=== PATIENT | female | born 1950 | race Asian ===

== ENCOUNTER → 2016-11-21 | Outpatient (CLI) | payer OTHER ==
[2015-09-10 09:15] VITALS: BP 140/81
[~2016-11-21] MED LIST: IBAN150T PO; LATA2.5D3 OP; LEVO112T4 PO; LOSA50TA6 PO; OMEG1CAP38 PO
[2016-11-21 07:12] LABS: BASO # 0.1 x10^3/uL (0.0-0.2); BASO % 1 % (0-3); EOS % 2 % (0-3); HEMATOCRIT 40.4 % (36.0-47.0); HEMOGLOBIN 13.1 g/dL (12.0-15.5); LYMPH % 22 % (24-48); MEAN CORPUSCULAR HEMOGLOBIN 27 pg (25-35); MEAN CORPUSCULAR HGB CONC 32 g/dL (31-37); MEAN CORPUSCULAR VOLUME 85 fL (79-100); MONO % 8 % (0-9); NEUT % 67 % (31-73); PLATELET COUNT 177 x10^3/uL (140-400); RED BLOOD COUNT 4.78 x10^6/uL (3.50-5.40); RED CELL DISTRIBUTION WIDTH 14.6 % (11.5-14.5)
[2016-11-21 07:32] LABS: ALBUMIN 3.5 g/dL (3.4-5.0); ALBUMIN/GLOBULIN RATIO 0.9 (1.0-1.7); CALCIUM 9.2 mg/dL (8.5-10.1); CREATININE 0.8 mg/dL (0.6-1.0); GFR 72.2; POTASSIUM 4.3 mmol/L (3.5-5.1); TOTAL BILIRUBIN 0.4 mg/dL (0.2-1.0); TOTAL PROTEIN 7.6 g/dL (6.4-8.2)
[2016-11-21 07:34] LABS: CHOLESTEROL/HDL RATIO 2.5
[2016-11-21 07:41] LABS: FREE T4 1.16 ng/dL (0.76-1.46)
[2016-11-21 10:34] LABS: ANISOCYTOSIS PRESENT; PLT ESTIMATE ADEQUATE (ADEQUATE)
[2016-11-22 05:19] LABS: ESTRADIOL LEVEL <5.0 pg/mL (.)
[2016-11-22 14:26] LABS: VITAMIN D25(OH)TOTAL 20.7 ng/mL (30.0-100.0)
== END | disposition home or self-care (01) ==
LOC: LAB 06:37
PROVIDERS: ATTEND Family Medicine
DX: E03.9 Hypothyroidism, unspecified (principal)
CPT/HCPCS: 36415; 80053; 80061; 82306; 82670; 84439; 84443; 85007; 85027

== ENCOUNTER → 2017-01-02 | Outpatient (CLI) | payer OTHER ==
[2015-09-10 09:15] VITALS: BP 140/81
--- NOTE | 2017-01-02 15:26 | KCIC ---
PROCEDURE Bilateral digital screening mammogram. HISTORY 66-year-old female presents for screening mammography. TECHNIQUE Full field digital craniocaudal and mediolateral oblique views of both breasts are obtained. Computer aided detection is applied. COMPARISON 11/20/2014 FINDINGS Breast parenchymal composition: Level A - Mostly fat. There is no new suspicious mass, calcification or architectural distortion. There are benign calcifications bilaterally, the majority of which are vascular in etiology. IMPRESSION BI-RADS Category 2: Benign findings. Annual mammography is recommended. Mammography is not 100% sensitive in detecting breast cancer. Therefore, a self breast exam and a clinical breast exam are very important. A negative mammogram does not negate a clinically suspicious finding and should not result in a delay in biopsying a clinically suspicious abnormality. This patient's information has been entered into a reminder system for the patient to be notified with the results of this examination and a target date for her next mammograms. Electronically signed by: Thu Nuñez (Jan 02, 2017 15:24:55)
--- NOTE | 2017-01-02 15:44 | KCIC ---
DEXA study Indication: Osteoporosis screening Reason For Study Reason: OSTEOPENIA OF MULTIPLE SITES, LOSS OF HEIGHT, POST MENOPAUSAL / Spl. Instructions: / History: Findings: score:-0.3 According to the world health organization (WHO): Normal: T score at or above -1 Osteopenia: T score between -1 and -2.5 Osteoporosis: T score at or below -2.5 Impression: Findings are consistent with osteopenia. Electronically signed by: Sudheer Murry (Jan 02, 2017 15:43:09)
== END | disposition home or self-care (01) ==
LOC: KCIC DEXA 13:19
PROVIDERS: ATTEND Internal Medicine
DX: Z12.31 Encounter for screening mammogram for malignant neoplasm of breast (principal); Z13.820 Encounter for screening for osteoporosis; M85.89 Other specified disorders of bone density and structure, multiple sites; R29.890 Loss of height; Z78.0 Asymptomatic menopausal state
CPT/HCPCS: 77080; G0202; 77067

== ENCOUNTER 2017-01-09 08:32 | Emergency (ER) | payer OTHER ==
[~2017-01-09] VITALS: Ht 165.1 cm; Wt 92.5 kg
[2017-01-09 08:32] VITALS: BP 146/77
--- NOTE | 2017-01-09 09:13 | PHYS DOC ---
Past Medical History Past Medical History: Hypertension, Hypothyroid Past Surgical History: Tubal ligation Alcohol Use: None Drug Use: None Adult General Chief Complaint Chief Complaint: FLU SYMPTOM HPI HPI Patient is a 66 year old female presents emergency department with complaint of generalized body aches and discomfort as well as congestion and weakness. Patient states she didn't get the flu shot. 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 She has been taking pdaw-fnz-iqvivsq medications for nasal congestion without relief. She states she's been using department as well. She states she is unable to sleep well at night. Review of Systems Review of Systems Constitutional: Denies fever or chills [] Eyes: Denies change in visual acuity, redness, or eye pain [] HENT: nasal congestion denies sore throat [] Respiratory: cough denies shortness of breath [] Cardiovascular: No additional information not addressed in HPI [] GI: Denies abdominal pain, nausea, vomiting, bloody stools or diarrhea [] : Denies dysuria or hematuria [] Musculoskeletal: Denies back pain or joint pain [] Integument: Denies rash or skin lesions [] Neurologic: Denies headache, focal weakness or sensory changes [] Allergies Allergies Allergies Coded Allergies Type Severity Reaction Last Updated Verified No Known Drug Allergies 09/10/15 No Physical Exam Physical Exam Constitutional: Well developed, well nourished, no acute distress, non-toxic appearance. [] HENT: Normocephalic, atraumatic, bilateral external ears normal, oropharynx moist, no oral exudates, nose normal. Bilateral tympanic membranes appear to be normal. Throat with no erythematous. Eyes: PERRLA, EOMI, conjunctiva normal, no discharge. [] Neck: Normal range of motion, no tenderness, supple, no stridor. [] Cardiovascular:Heart rate regular rhythm, no murmur [] Lungs & Thorax: Bilateral breath sounds clear to auscultation [] Skin: Warm, dry, no erythema, no rash. [] Back: No tenderness Extremities: No tenderness, no cyanosis, no clubbing, ROM intact, no edema. [] Neurologic: Alert and oriented X 3, normal motor function, normal sensory function, no focal deficits noted. [] Psychologic: Affect normal, judgement normal, mood normal. [] Current Patient Data Vital Signs Vital Signs Date Time Temp Pulse Resp B/P Pulse Ox O2 Delivery O2 Flow Rate FiO2 01/09/17 08:32 97.9 94 18 96 Room Air 97.9 EKG EKG [] Radiology/Procedures Radiology/Procedures [] Course & Med Decision Making Course & Med Decision Making Pertinent Labs and Imaging studies reviewed. (See chart for details) Patient was positive for influenza A. She'll be placed on Tamiflu as she is right at the cutoff for the timeframe for Tamiflu. Patient will be discharged home in stable condition with recommendations for Tylenol and ibuprofen for fever chills generalized body aches and discomfort. Patient agrees with discharge instructions treatment regimens and follow-up with recommendations. Also recommended plenty of fluids such as water and Gatorade and propel. Patient was provided with signs and symptoms to return back to the emergency department. [] Dragon Disclaimer Dragon Disclaimer This electronic medical record was generated, in whole or in part, using a voice recognition dictation system. Departure Departure Impression: Primary Impression: Influenza A Disposition: HOME, SELF-CARE Condition: STABLE Referrals: MCKENNA CHENG MD (PCP) Patient Instructions: Influenza, Adult, Qvge-io-Oqqy Additional Instructions: Home to rest Medication as prescribed Tylenol or Ibuprofen for fever, chills and generalized body aches Drink plenty of fluids such as water, gatorade or propel Followup with your primary care provider in 3-5 days Return to emergency department as needed for signs and symptoms that become worse. Scripts Oseltamivir Phosphate (Tamiflu)75 Mg Capsule1 Cap PO BID #10 CAP Prov:DARRIAN VALERIO NP 01/09/17 DARRIAN VALERIO NP Jan 09, 2017 09:13
[2017-01-09 09:24] LABS: OBC FLU VALID
[2017-01-09] MEDS ORDERED: OSEL75CA PO (09:28)
== END 2017-01-09 09:30 | disposition home or self-care (01) ==
LOC: ER 08:32
DX: J09.X2 Influenza due to identified novel influenza A virus with other respiratory manifestations (principal); I10 Essential (primary) hypertension; E03.9 Hypothyroidism, unspecified; Z98.51 Tubal ligation status
CPT/HCPCS: 87804; 99284

== ENCOUNTER → 2017-02-09 | Outpatient (CLI) | payer OTHER ==
[~2017-02-09] MED LIST changes: +OSEL75CA PO; +REGADENOSON 0.4 MG/5 ML DISP.SYRIN. IV ONE
--- NOTE | 2017-02-09 12:24 | RAD ---
APPROVED REPORT Test Type: Pharmacological Stress Nurse/Tech: candido daugherty Test Indications: chest tightness Cardiac History: HTN, SEE EHR Medications: SEE EHR Medical History: NONE STATED, SEE EHR Resting ECG: SR Resting Heart Rate: 65 bpm Resting Blood Pressure: 147/85mmHg Pretest Chest Pain: No chest pain Nurse/Tech Notes LUNG SOUNDS CLEAR, S1S2 WNL. Consent: The procedure was explained to the patient in lay terms. Informed consent was witnessed. Angus eout was entered into [employer]. History and Stress Test performed by RICARDO Lo Pharm. Details Pharmacologic stress testing was performed using 0.4mg per 5ml of regadenoson given intravenously ove r 7-10 seconds. Stress Symptoms NONE STATED POST EXERCISE Reason for Termination: Infusion complete Max HR: 100 bpm Max Blood Pressure: 147/85mmHg Chest Pain: No. Arrhythmia: No. ST Change: No. . INTERPRETATION Stress EKG Conclusion: Baseline EKG showed sinus rhythm. No ischemic changes at peak stress. No arr hythmias. Imaging Protocol IMAGE PROTOCOL: Rest Tc-99m/stress Tc-99m 1 day Rest: Stress: Viability: Radiopharm.Tc99m EieyofjszCu42g Sestamibi Ksho54kCh 33.7mCi Duration 15min. 10min. Img Date 02/09/2017 02/09/2017 Inj-Img Wyji42cjr. 60min. Rest Admin Site:IV - Right WristAdministrator:RT Roly (R)(N) Stress Admin Site: IV - Right WristAdministrator: RICARDO Lo STRESS DATA End Diast. Vol.44.0mlAv. Heart Rate86.0bpm End Syst. Vol.4.0mlCO Index BSA0.0L/min Myocardial Mass90.0gEject. Dcnpzupe13.0% Stress Rates Pk. Fill Rate5.48EDV/secLVtime Pk. Fill 195.75msec Pk. Empty Rate6.85ESV/secLVtime Pk. Xhyki289.89msec 11/14 Pk. Fill0.79EDV/sec Stress Scores Regional WT0.00Summed WT0.00 Regional WM0.00Summed WM1.00 Study quality was good. Left Ventricular size was Normal at Rest and Stress. Lung uptake was Normal. Left Ventricular ejection fraction is >80%. The rest and stress images show normal perfusion, normal contraction and thickening. LV Perf. Quant 17 Seg. SSS1.00 17 Seg. SRS0.00 17 Seg. SDS1.00 Stress Defect Extent (% LAD)0.00Rest Defect Extent (% LAD)0.00Rev. Defect Extent (% LAD)0.00 Stress Defect Extent (% LCX) 7.50Rest Defect Extent (% LCX)0.00Rev. Defect Extent (% LCX)0.00 Stress Defect Extent (% RCA)0.00Rest Defect Extent (% RCA)0.00Rev. Defect Extent (% RCA)0.00 Stress Defect Extent (% KISHOR)1.30Rest Defect Extent (% KISHOR)0.00Rev. Defect Extent (% KISHOR)0.00 Conclusion 1. Regadenoson cardioisotope stress test did not show any evidence of ischemia or infarct. 2. Normal left ventricular systolic function with ejection fraction calculated at >80%. 3. Low risk for cardiac events.
== END | disposition home or self-care (01) ==
LOC: NM 07:48
PROVIDERS: ATTEND Internal Medicine Cardiovascular Disease
DX: R07.2 Precordial pain (principal)
CPT/HCPCS: 78452; 93017; 96374; 96375; 96376; A9500; J2785

== ENCOUNTER → 2017-02-19 | Outpatient (CLI) | payer OTHER ==
[~2017-02-19] MED LIST changes: -REGADENOSON 0.4 MG/5 ML DISP.SYRIN. IV ONE
--- NOTE | 2017-02-19 15:19 | CARD ---
APPROVED REPORT EXAM: Two-dimensional and M-mode echocardiogram with Doppler and color Doppler. Other Information Quality : GoodHR: 71bpm Rhythm : NSR INDICATION Precordial pain RISK FACTORS Hypertension Family History 2D DIMENSIONS RVDd1.7 (2.9-3.5cm)Left Atrium(2D)3.3 (1.6-4.0cm) IVSd0.9 (0.7-1.1cm)Aortic Root(2D)2.9 (2.0-3.7cm) LVDd5.1 (3.9-5.9cm)LVOT Diameter2.3 (1.8-2.4cm) PWd0.7 (0.7-1.1cm)LVDs3.1 (2.5-4.0cm) FS (%) 38.6 %SV83.9 ml LVEF(%)68.6 (>50%) Aortic Valve AoV Peak Erlin.151.7cm/sAoV VTI31.5cm AO Peak GR.9.2mmHgLVOT Peak Erlin.110.1cm/s AO Mean GR.5mmHgAVA (VMAX)2.95cm2 Mitral Valve MV E Yxqqjhus40.0cm/sMV E Peak Gr.3mmHg MV DECEL [id number] A Ltxjaefk61.6cm/s MV E Mean Gr.1mmHgE/A Ratio0.8 MV A Bcmfwnge937ew Pulmonary Valve PV Peak Bxxewnxd66.1cm/s Pulmonary Vein S1 Mgcvwqql89.0cm/sD2 Kejycpot19.6cm/s PVa grbzurph83iypu LEFT VENTRICLE The left ventricle is normal size. There is normal left ventricular wall thickness. The left ventricu lar systolic function is normal and the ejection fraction is within normal range. The Ejection Fracti on is 60-65%. There is normal LV segmental wall motion. Transmitral Doppler flow pattern is Grade I-a bnormal relaxation pattern. RIGHT VENTRICLE The right ventricle is normal size. There is normal right ventricular wall thickness. The right ventr icular systolic function is normal. ATRIA The left atrium size is normal. The right atrium size is normal. The interatrial septum is intact wit h no evidence for an atrial septal defect or patent foramen ovale as noted on 2-D or Doppler imaging. AORTIC VALVE The aortic valve is mildly sclerotic. The aortic valve is trileaflet. Doppler and Color Flow revealed no significant aortic regurgitation. There is no significant aortic valvular stenosis. MITRAL VALVE Mitral annular calcification is mild. The mitral valve leaflets are thickened. There is no evidence o f mitral valve prolapse. There is no mitral valve stenosis. Doppler and Color Flow revealed trace korey ral regurgitation. TRICUSPID VALVE The tricuspid valve is normal in structure and function. Doppler and Color Flow revealed trace tricus pid regurgitation. PULMONIC VALVE The pulmonary valve is normal in structure and function. Doppler and Color Flow revealed trace pulmon ic valvular regurgitation. There is no pulmonic valvular stenosis. GREAT VESSELS The aortic root is normal in size. The ascending aorta is normal in size. The pulmonary artery is nor mal. The IVC is normal in size and collapses >50% with inspiration. PERICARDIAL EFFUSION There is no evidence of significant pericardial effusion. Critical Notification Critical Value: No <Conclusion> The left ventricle is normal size. The left ventricular systolic function is normal and the ejection fraction is within normal range. The Ejection Fraction is 60-65%. There is normal left ventricular wall thickness. There is no significant aortic valvular stenosis. Doppler and Color Flow revealed no significant aortic regurgitation. Doppler and Color Flow revealed trace mitral regurgitation. Doppler and Color Flow revealed trace tricuspid regurgitation. There is no evidence of significant pericardial effusion.
== END | disposition home or self-care (01) ==
LOC: ECHO 11:51
PROVIDERS: ATTEND Internal Medicine Cardiovascular Disease
DX: R07.2 Precordial pain (principal); I08.1 Rheumatic disorders of both mitral and tricuspid valves
CPT/HCPCS: 93306

== ENCOUNTER → 2017-08-10 | Outpatient (CLI) | payer OTHER ==
[2017-08-10 07:29] LABS: BASO # 0.1 x10^3/uL (0.0-0.2); BASO % 1 % (0-3); EOS % 1 % (0-3); HEMATOCRIT 41.6 % (36.0-47.0); HEMOGLOBIN 13.6 g/dL (12.0-15.5); LYMPH # 2.7 x10^3/uL (1.0-4.8); LYMPH % 28 % (24-48); MEAN CORPUSCULAR HEMOGLOBIN 28 pg (25-35); MEAN CORPUSCULAR HGB CONC 33 g/dL (31-37); MEAN CORPUSCULAR VOLUME 85 fL (79-100); MONO % 9 % (0-9); NEUT % 61 % (31-73); PLATELET COUNT 187 x10^3/uL (140-400); RED BLOOD COUNT 4.89 x10^6/uL (3.50-5.40); RED CELL DISTRIBUTION WIDTH 14.1 % (11.5-14.5); WHITE BLOOD COUNT 9.8 x10^3/uL (4.0-11.0)
[2017-08-10 07:58] LABS: ALBUMIN 3.5 g/dL (3.4-5.0); ALBUMIN/GLOBULIN RATIO 0.8 (1.0-1.7); CALCIUM 9.4 mg/dL (8.5-10.1); CREATININE 0.8 mg/dL (0.6-1.0); POTASSIUM 4.2 mmol/L (3.5-5.1); TOTAL BILIRUBIN 0.3 mg/dL (0.2-1.0); TOTAL PROTEIN 7.9 g/dL (6.4-8.2); URIC ACID 5.1 mg/dL (2.6-6.0)
[2017-08-10 08:02] LABS: CHOLESTEROL/HDL RATIO 2.7
[2017-08-10 08:12] LABS: FREE T4 1.19 ng/dL (0.76-1.46)
[2017-08-10 16:20] LABS: RHEUMATOID FACTOR <10.0 IU/mL (0.0-13.9)
== END | disposition home or self-care (01) ==
LOC: LAB 07:10
PROVIDERS: ATTEND Internal Medicine
DX: E03.9 Hypothyroidism, unspecified (principal)
CPT/HCPCS: 36415; 80053; 80061; 82306; 84439; 84443; 84550; 85025; 85651; 86431

== ENCOUNTER → 2018-05-01 | Outpatient (CLI) | payer OTHER ==
[2018-05-01 07:57] LABS: ADD MAN DIFF? NO; BASO # 0.1 x10^3/uL (0.0-0.2); BASO % 1 % (0-3); EOS # 0.2 x10^3/uL (0.0-0.7); EOS % 3 % (0-3); HEMATOCRIT 39.8 % (36.0-47.0); HEMOGLOBIN 13.2 g/dL (12.0-15.5); LYMPH # 1.5 x10^3/uL (1.0-4.8); LYMPH % 19 % (24-48); MEAN CORPUSCULAR HEMOGLOBIN 28 pg (25-35); MEAN CORPUSCULAR HGB CONC 33 g/dL (31-37); MEAN CORPUSCULAR VOLUME 84 fL (79-100); MONO # 0.8 x10^3/uL (0.0-1.1); MONO % 10 % (0-9); NEUT # 5.4 x10^3uL (1.8-7.7); NEUT % 68 % (31-73); PLATELET COUNT 171 x10^3/uL (140-400); RED BLOOD COUNT 4.74 x10^6/uL (3.50-5.40); RED CELL DISTRIBUTION WIDTH 14.2 % (11.5-14.5)
[2018-05-01 08:24] LABS: ALBUMIN 3.4 g/dL (3.4-5.0); ALBUMIN/GLOBULIN RATIO 0.8 (1.0-1.7); ALK PHOS 122 U/L (46-116); ALT (SGPT) 28 U/L (14-59); ANION GAP 6 (6-14); AST (SGOT) 21 U/L (15-37); BLOOD UREA NITROGEN 12 mg/dL (7-20); BUN/CREATININE RATIO 15 (6-20); CARBON DIOXIDE 28 mmol/L (21-32); CHLORIDE 105 mmol/L (98-107); CHOLESTEROL 191 mg/dL (0-200); CREATININE 0.8 mg/dL (0.6-1.0); GFR 71.8; GLUCOSE 101 mg/dL (70-99); HDLC 71 mg/dL (40-60); LDLC 96 mg/dL (0-100); NON-HDL CHOLESTEROL 120 mg/dL (0-129); POTASSIUM 4.6 mmol/L (3.5-5.1); SODIUM 139 mmol/L (136-145); TOTAL BILIRUBIN 0.4 mg/dL (0.2-1.0); TOTAL PROTEIN 7.9 g/dL (6.4-8.2); TRIGLYCERIDES 122 mg/dL (0-150); VLDLC 24 mg/dL (0-40)
[2018-05-01 08:25] LABS: CHOLESTEROL/HDL RATIO 2.7
[2018-05-01 08:30] LABS: THYROID STIM HORMONE (TSH) 3.663 uIU/mL (0.358-3.74)
[2018-05-02 01:11] LABS: HEMOGLOBIN A1C 5.7 % (4.8-5.6)
== END | disposition home or self-care (01) ==
LOC: LAB 07:41
DX: E03.9 Hypothyroidism, unspecified (principal); I10 Essential (primary) hypertension; M85.80 Other specified disorders of bone density and structure, unspecified site
CPT/HCPCS: 36415; 80053; 80061; 82306; 83036; 84443; 85025

== ENCOUNTER → 2018-09-27 | Outpatient (CLI) | payer OTHER ==
[~2018-09-27] MED LIST changes: -LOSA50TA6 PO; +LOSA50TA7 PO
== END | disposition home or self-care (01) ==
LOC: LAB 07:04
PROVIDERS: ATTEND Internal Medicine
DX: E55.9 Vitamin D deficiency, unspecified (principal)
CPT/HCPCS: 36415; 82306

== ENCOUNTER → 2019-05-08 | Outpatient (CLI) | payer OTHER ==
[~2019-05-08] MED LIST changes: -IBAN150T PO; +IBAN150T15 PO; +LOSA-73 PO; -LOSA50TA7 PO
--- NOTE | 2019-05-08 12:17 | RAD ---
Right lower extremity venous duplex study 05/08/2019 12:13 PM Clinical History: Right leg swelling. Palpable lump. Technique: Using a combination of real time ultrasound imaging and color-flow and pulse Doppler imaging techniques, including spectral analysis, graded compression and augmentation, duplex evaluation of the deep venous system of the right lower extremity was performed. Multiple images were obtained. Findings: There is no sonographic evidence of deep venous thrombosis involving the visualized deep venous structures of the right lower extremity. Limited ultrasound evaluation of the area of palpable abnormality, as indicated by the patient, was performed demonstrating no gross abnormality. Impression: No evidence of deep venous thrombosis involving the right lower extremity Electronically signed by: Everardo Borrero MD (05/08/2019 12:14 PM) [facility]
== END | disposition home or self-care (01) ==
LOC: US 09:51
PROVIDERS: ATTEND Internal Medicine
DX: M79.89 Other specified soft tissue disorders (principal); R22.41 Localized swelling, mass and lump, right lower limb
CPT/HCPCS: 93971

== ENCOUNTER → 2019-09-22 | Outpatient (CLI) | payer BC, OTHER ==
--- NOTE | 2019-09-22 17:36 | RAD ---
KNEE BILAT 3V Bilateral AP standing, lateral, AP and tangential patellar images are obtained. HISTORY: Chronic bilateral knee pain. Right knee: Severe degenerative changes at the medial compartment with narrowing, osteophytes and subchondral eburnation. Mild spurring at the lateral compartment. Moderate osteophytes at the patellofemoral joint. No evidence of acute fracture or aggressive bone destruction. No significant soft tissue abnormality is identified. Subchondral lucency at the lateral femoral condyle compatible with a cyst. Left knee: Mild to moderate narrowing of the medial joint compartment. Mild osteophytes at the medial compartment. Akja-ob-mbkjotnt osteophytes at the lateral and patellofemoral compartment. No significant soft tissue abnormality. No evidence of acute fracture or aggressive bone destruction. 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 Electronically signed by: Saul Jones MD (09/22/2019 5:33 PM) [facility]
== END | disposition home or self-care (01) ==
LOC: RAD 14:06
PROVIDERS: ATTEND Internal Medicine
DX: M17.0 Bilateral primary osteoarthritis of knee (principal); M25.761 Osteophyte, right knee; M25.762 Osteophyte, left knee; G89.29 Other chronic pain
CPT/HCPCS: 73562; 73565

== ENCOUNTER → 2021-05-02 | Outpatient (CLI) | payer OTHER ==
[~2021-05-02] MED LIST changes: -LEVO112T4 PO; +LEVO112T49 PO
[2021-05-02 08:32] LABS: BASO # 0.1 x10^3/uL (0.0-0.2); BASO % 1 % (0-3); EOS # 0.1 x10^3/uL (0.0-0.7); EOS % 2 % (0-3); HEMATOCRIT 37.4 % (36.0-47.0); HEMOGLOBIN 12.3 g/dL (12.0-15.5); LYMPH # 1.5 x10^3/uL (1.0-4.8); LYMPH % 19 % (24-48); MEAN CORPUSCULAR HEMOGLOBIN 28 pg (25-35); MEAN CORPUSCULAR HGB CONC 33 g/dL (31-37); MEAN CORPUSCULAR VOLUME 86 fL (79-100); MONO # 0.7 x10^3/uL (0.0-1.1); MONO % 9 % (0-9); NEUT # 5.6 x10^3/uL (1.8-7.7); NEUT % 70 % (31-73); PLATELET COUNT 166 x10^3/uL (140-400); RED BLOOD COUNT 4.36 x10^6/uL (3.50-5.40); RED CELL DISTRIBUTION WIDTH 13.9 % (11.5-14.5); WHITE BLOOD COUNT 7.9 x10^3/uL (4.0-11.0)
[2021-05-02 09:04] LABS: ALBUMIN 3.6 g/dL (3.4-5.0); ALBUMIN/GLOBULIN RATIO 0.9 (1.0-1.7); CALCIUM 8.7 mg/dL (8.5-10.1); CREATININE 0.9 mg/dL (0.6-1.0); GFR 62.1; POTASSIUM 4.9 mmol/L (3.5-5.1); TOTAL BILIRUBIN 0.4 mg/dL (0.2-1.0); TOTAL PROTEIN 7.4 g/dL (6.4-8.2)
[2021-05-02 09:05] LABS: CHOLESTEROL/HDL RATIO 2.8
[2021-05-03 01:17] LABS: HEMOGLOBIN A1C 5.7 % (4.8-5.6)
== END ==
LOC: LAB 08:11
PROVIDERS: ATTEND Internal Medicine
DX: I10 Essential (primary) hypertension (principal); E03.9 Hypothyroidism, unspecified; M85.89 Other specified disorders of bone density and structure, multiple sites
CPT/HCPCS: 36415; 80053; 80061; 82306; 83036; 84443; 85025

== ENCOUNTER → 2021-07-28 | Outpatient (CLI) | payer OTHER ==
--- NOTE | 2021-07-28 15:40 | KCIC ---
EXAM: Right knee, 3 views. HISTORY: Pain. COMPARISON: 09/22/2019 FINDINGS: 3 views of the right knee are obtained. There is severe medial and patellofemoral compartme nt joint space narrowing, subchondral sclerosis and spurring. There is moderate lateral compartment s purring. There is slight enthesopathy along the superior patella. There are small posterior joint loo se bodies. There is no fracture, dislocation or subluxation. IMPRESSION: Severe medial and patellofemoral compartment predominant osteoarthritis of the right knee . This appears to be stable compared to the prior study. Electronically signed by: Thu Nuñez MD (07/28/2021 3:37 PM) [id number]
--- NOTE | 2021-07-29 08:27 | KCIC ---
EXAM: DUAL ENERGY X-RAY ABSORPTIOMETRY (DEXA). HISTORY: Postmenopausal screening. FINDINGS: The lowest measured T-score is -1.2 in the lumbar spine, based on a bone mineral density of 0.919 g/cm^2. Refer to the worksheets for full detail. There has been a 4.7 percent increase in density of the lumbar spine and 5.1 percent increase in dens ity of the left hip compared to a study performed 02/04/2019. IMPRESSION: 1. Low bone mass. Bone mineral density yields a T-score between -1.0 and -2.5. Fracture risk is incre ased. 2. FRAX report: Not calculated. 3. Increase in bone mineral density compared to the prior study. METHODOLOGY: Dual energy x-ray absorptiometry was performed to measure bone mineral density. The foll owing analysis is based on the 2019 Official Positions of the International Society for Clinical Dens itometry: Measurements of the hips and the average of L1-L4 are preferred. When the spine and/or hip cannot be feasibly measured or interpreted, or in the setting of hyperparathyroidism, distal radial bone minera l density may be measured. The lumbar spine T-score is based on the average bone mineral density of L1-L4. In the setting of art ifact or anatomic abnormality, some lumbar levels may be excluded, and the remaining levels used for calculation. A single lumbar level is not used for diagnosis, and if only a single level is available for assessment, another anatomic site will be used to assign a diagnosis. The hip T-score is based on the bone mineral density measurement of the femoral neck or total proxima l femur of either side, whichever is lowest. Bilateral mean values are not used for diagnosis. The forearm T-score is derived from 33% of the distal radius of the nondominant forearm. Electronically signed by: Thu Nuñez MD (07/29/2021 8:25 AM) [id number]
== END ==
LOC: KCIC DEXA 13:59
PROVIDERS: ATTEND Internal Medicine
DX: M17.11 Unilateral primary osteoarthritis, right knee (principal); M23.41 Loose body in knee, right knee; M76.891 Other specified enthesopathies of right lower limb, excluding foot; M85.88 Other specified disorders of bone density and structure, other site; N95.9 Unspecified menopausal and perimenopausal disorder
CPT/HCPCS: 73562; 77080

== ENCOUNTER → 2022-02-07 | Outpatient (CLI) | payer OTHER ==
[2022-02-07 10:03] LABS: BASO # 0.1 x10^3/uL (0.0-0.2); BASO % 1 % (0-3); EOS # 0.1 x10^3/uL (0.0-0.7); EOS % 2 % (0-3); HEMATOCRIT 39.8 % (36.0-47.0); HEMOGLOBIN 12.8 g/dL (12.0-15.5); LYMPH # 1.8 x10^3/uL (1.0-4.8); LYMPH % 22 % (24-48); MEAN CORPUSCULAR HEMOGLOBIN 28 pg (25-35); MEAN CORPUSCULAR HGB CONC 32 g/dL (31-37); MEAN CORPUSCULAR VOLUME 86 fL (79-100); MONO # 0.6 x10^3/uL (0.0-1.1); MONO % 7 % (0-9); NEUT # 5.8 x10^3/uL (1.8-7.7); NEUT % 69 % (31-73); PLATELET COUNT 183 x10^3/uL (140-400); RED BLOOD COUNT 4.63 x10^6/uL (3.50-5.40); RED CELL DISTRIBUTION WIDTH 14.7 % (11.5-14.5); WHITE BLOOD COUNT 8.5 x10^3/uL (4.0-11.0)
[2022-02-07 10:26] LABS: ALBUMIN 3.9 g/dL (3.4-5.0); ALBUMIN/GLOBULIN RATIO 0.9 (1.0-1.7); CALCIUM 8.8 mg/dL (8.5-10.1); CHOLESTEROL/HDL RATIO 2.8; CREATININE 0.8 mg/dL (0.6-1.0); GFR 71.1; POTASSIUM 4.7 mmol/L (3.5-5.1); TOTAL BILIRUBIN 0.5 mg/dL (0.2-1.0); TOTAL PROTEIN 8.1 g/dL (6.4-8.2)
[2022-02-07 12:38] LABS: ANISOCYTOSIS SLIGHT; PLT ESTIMATE ADEQUATE (ADEQUATE)
[2022-02-08 00:08] LABS: HEMOGLOBIN A1C 5.6 % (4.8-5.6)
== END ==
LOC: LAB 08:55
PROVIDERS: ATTEND Internal Medicine
DX: I10 Essential (primary) hypertension (principal); E03.9 Hypothyroidism, unspecified; M85.89 Other specified disorders of bone density and structure, multiple sites
CPT/HCPCS: 80053; 80061; 82306; 82607; 83036; 83921; 84443; 85025

== ENCOUNTER → 2022-02-10 | Outpatient (CLI) | payer OTHER ==
--- NOTE | 2022-02-10 20:21 | RAD ---
Study: XR CHEST 2V Indication: Atypical chest pain. Comparison: 04/04/2018 Findings: Unchanged configuration of the cardiomediastinal silhouette and zach. No focal airspace infiltrate, p leural effusion or pneumothorax. Mild thoracic dextrocurvature. Incompletely evaluated degenerative changes. Metallic density focus pr ojecting at the anterior upper abdomen is external to the patient. Impression: No acute radiographic abnormality of the chest. No significant change from 04/04/2018. Electronically signed by: SEBASTIAN JACKSON MD (02/10/2022 8:19 PM) [facility]
== END ==
LOC: RAD 11:42
PROVIDERS: ATTEND Internal Medicine
DX: M43.8X4 Other specified deforming dorsopathies, thoracic region (principal); R07.89 Other chest pain; Z18.10 Retained metal fragments, unspecified
CPT/HCPCS: 71046

== ENCOUNTER → 2022-03-16 | Outpatient (CLI) | payer OTHER ==
[~2022-03-16] MED LIST changes: +REGADENOSON 0.4 MG/5 ML DISP.SYRIN. IV ONE
--- NOTE | 2022-03-16 15:27 | RAD ---
MR#: [id number] Date of Study: 03/16/2022 Ordering Physician: KIRSTIN TA, Referring Physician: RENE OROPEZA Tech: RT Cherry (R) (N) APPROVED REPORT Test Type: Exercise Stress Nurse/Tech: Vasu ERVIN Test Indications: Chest pain Cardiac History: HTN, ASA daily, COVID 12/2021 Medications: Losartan, See EMR. Medical History: See EMR. Resting ECG: SR Resting Heart Rate: 70 bpm Resting Blood Pressure: 129/76mmHg Pretest Chest Pain: No chest pain Nurse/Tech Notes Lungs diminished, CTA. No shortness of breath, no chest pain. Stress Symptoms Fatigue. No chest pain, no shortness of breath. Tolerated stress/treadmill well. POST EXERCISE Reason for Termination: Reached target heart rate Target HR: Yes Max HR: 135 bpm 105% of Maximum Predicted HR: 128 bpm Exercise duration: 4:24 min:sec, 2 Stage Exercise capacity: 7.0METs Max Blood Pressure: 172/76mmHg Blood Pressure response to exercise: Normal blood pressure response during stress. Heart Rate response to exercise: Normal response. Chest Pain: No. Arrhythmia: No. PAC's during exersie/treadmill. Resolved by end of recovery. ST Change: No. INTERPRETATION Stress EKG Conclusion: Negeative for ischemia. Imaging Protocol IMAGE PROTOCOL: Rest Tc-99m/stress Tc-99m 1 day Rest: Stress: Viability: Radiopharm.Tc99m PnbjtxckkIj93u Sestamibi Dose10.3mCi 31mCi Duration 15min. Img Date 03/16/2022 03/16/2022 Inj-Img Brft09nbs. 60min. Rest Admin Site:IV - Left AntecubitalAdministrator:RT Cherry (R)(N) Stress Admin Site: IV - Left AntecubitalAdministrator: RENE EwingTCElisa, ARRT (R)(N) STRESS DATA End Diast. Vol.36.0mlAv. Heart Rate93.0bpm End Syst. Vol.2.0mlCO Index BSA0.0L/min Myocardial Mass79.0gEject. Ahzikcpy32.0% Stress Rates Pk. Fill Rate3.63EDV/secLVtime Pk. Fill 152.31msec Pk. Empty Rate6.59ESV/secLVtime Pk. Ufwuc730.58msec 1/3 Pk. Fill2.09EDV/sec Stress Scores Regional WT0.00Summed WT1.00 Regional WM0.00Summed WM1.00 The rest and stress images show normal perfusion, normal contraction and thickening. LV Perf. Quant 17 Seg. SSS0.00 17 Seg. SRS0.00 17 Seg. SDS0.00 Stress Defect Extent (% LAD)0.00Rest Defect Extent (% LAD)0.00Rev. Defect Extent (% LAD)0.00 Stress Defect Extent (% LCX) 0.00Rest Defect Extent (% LCX)0.00Rev. Defect Extent (% LCX)0.00 Stress Defect Extent (% RCA)0.00Rest Defect Extent (% RCA)0.00Rev. Defect Extent (% RCA)0.00 Stress Defect Extent (% KISHOR)0.00Rest Defect Extent (% KISHOR)0.00Rev. Defect Extent (% KISHOR)0.00 Other Information Quality:Good Risk Assessment: Low Risk Conclusion 1. No evidence of EKG changes with stress testing. 2. Normal perfusion at stress/rest. 3. Low risk study. 4. EF > 60%. Signed by : Kirstin Ta, Electronically Approved : 03/16/2022 15:26:40
--- NOTE | 2022-03-16 15:29 | CARD ---
MR#: [id number] Date of Study: 03/16/2022 Ordering Physician: KIRSTIN PALM, Referring Physician: KIRSTIN PALM, Tech: Duong Simmons [facility] APPROVED REPORT EXAM: Two-dimensional and M-mode echocardiogram with Doppler and color Doppler. Other Information Quality : AverageHR: 78bpm Rhythm : NSR w/ isolated PAC's INDICATION Chest Pain RISK FACTORS Hypertension 2D DIMENSIONS Left Atrium(2D)3.6 (1.6-4.0cm)IVSd1.0 (0.7-1.1cm) Aortic Root(2D)2.8 (2.0-3.7cm)LVDd4.2 (3.9-5.9cm) LVOT Diameter1.8 (1.8-2.4cm)PWd1.0 (0.7-1.1cm) LA Afajlg25 (18-58mL)LVDs2.6 (2.5-4.0cm) FS (%) 37.5 %SV53.3 ml LVEF(%)68.0 (>50%) Aortic Valve AoV Peak Erlin.152.8cm/sAoV VTI28.5cm AO Peak GR.9.3mmHgLVOT Peak Erlin.117.1cm/s LVOT VTI 23.95cmAO Mean GR.5mmHg KIMMY (VMAX)1.30lj8DRY (VTI)2.24cm2 Mitral Valve MV E Wmhdbdyb29.8cm/sMV DECEL MBOV912lt MV A Rfshvbia25.8cm/sMV NHC03yu E/A Ratio0.8MVA (PHT)3.90cm2 TDI E/Lateral E'10.0E/Medial E'11.2 Pulmonary Valve PV Peak Dnpxhjtd030.4cm/sPV Peak Grad.4mmHg Tricuspid Valve TR P. Pyxxhaff249eu/sTR Peak Gr.18mmHg Pulmonary Vein S1 Cnshswrs35.6cm/sD2 Koehfzxm97.7cm/s LEFT VENTRICLE The left ventricle is normal size. There is normal left ventricular wall thickness. The left ventricu lar systolic function is normal and the ejection fraction is within normal range. EF 55% There is nor mal LV segmental wall motion. Transmitral Doppler flow pattern is Grade I-abnormal relaxation pattern . No left ventricle thrombus noted on this study. There is no ventricular septal defect visualized. T here is no left ventricular aneurysm. There is no mass noted in the left ventricle. RIGHT VENTRICLE The right ventricle is normal size. There is normal right ventricular wall thickness. The right ventr icular systolic function is normal. ATRIA The left atrium size is normal. The right atrium size is normal. The interatrial septum is intact wit h no evidence for an atrial septal defect or patent foramen ovale as noted on 2-D or Doppler imaging. AORTIC VALVE The aortic valve is normal in structure and function. Doppler and Color Flow revealed no significant aortic regurgitation. There is no significant aortic valvular stenosis. There is no aortic valvular v egetation. MITRAL VALVE The mitral valve is normal in structure and function. There is no evidence of mitral valve prolapse. There is no mitral valve stenosis. Doppler and Color Flow revealed no mitral valve regurgitation note d. TRICUSPID VALVE The tricuspid valve is normal in structure and function. Doppler and Color Flow revealed no tricuspid valve regurgitation noted. There is no tricuspid valve prolapse or vegetation. There is no tricuspid valve stenosis. PULMONIC VALVE Doppler and Color Flow revealed no pulmonic valvular regurgitation. There is no pulmonic valvular zahida nosis. GREAT VESSELS The aortic root is normal in size. The ascending aorta is normal in size. The pulmonary artery is nor mal. The IVC is normal in size and collapses >50% with inspiration. PERICARDIAL EFFUSION There is no pleural effusion. There is no evidence of significant pericardial effusion. Critical Notification Critical Value: No <Conclusion> The left ventricular systolic function is normal and the ejection fraction is within normal range. EF 55% There is normal LV segmental wall motion. Signed by : Kirstin Palm, Electronically Approved : 03/16/2022 15:28:36
== END ==
LOC: NM 07:35
PROVIDERS: ATTEND Internal Medicine Cardiovascular Disease
DX: R07.9 Chest pain, unspecified (principal)
CPT/HCPCS: 78452; 93017; 93306; A9500; C8929